=== PATIENT | male | born 2005 | race Caucasian/White ===

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

== ENCOUNTER 2025-06-22 08:46 | Emergency (ER) | payer BC | END 2025-06-22 09:31 | disposition home or self-care (01) | LOC: VM.ED 08:46 | DX: L05.91 Pilonidal cyst without abscess (principal); Z79.899 Other long term (current) drug therapy | CPT/HCPCS: 87070; 87077; 87186; 99283 ==

== ENCOUNTER 2025-09-15 17:35 | Emergency (ER) | payer BC | END 2025-09-15 18:40 | disposition home or self-care (01) | LOC: VM.ED 17:35 | DX: J06.9 Acute upper respiratory infection, unspecified (principal); Z79.899 Other long term (current) drug therapy | CPT/HCPCS: 87428-QW; 99283; 99284 ==